=== PATIENT | female | born 1945 | race Two or more races ===

== ENCOUNTER 2021-02-26 16:12 | Inpatient (IN) | payer OTHER ==
[~2021-02-26] VITALS: Ht 157.5 cm; Wt 83.0 kg
[2021-02-26] MEDS ORDERED: LEVO88TA5 PO (16:36)
[2021-02-26] MEDS ORDERED: NYST15CR2 TP (16:36)
[2021-02-26] MEDS ORDERED: METF-440 PO (16:36)
[2021-02-26] MEDS ORDERED: SENN-261 PO (16:41)
[2021-02-26] MEDS ORDERED: OCULAR LUBRICANT EACHEYE (16:41)
[2021-02-26] MEDS ORDERED: ACET-2154 PO (16:41)
[2021-02-26] MEDS ORDERED: LISI20TA30 PO (16:41)
[2021-02-26] MEDS ORDERED: QUET25TA PO ×2 (16:41)
[2021-02-26 17:00] LABS: HEMATOCRIT 43.5 % (31.2-41.9); MEAN CORPUSCULAR HEMOGLOBIN 25.8 uug (24.7-32.8); MEAN CORPUSCULAR VOLUME 80.1 fL (75.5-95.3); PLATELET COUNT (AUTO) 242 K/uL (179-408)
--- NOTE | 2021-02-26 17:00 | NUR ---
pt awake PRENIALE AREA excorited and redness COLOSLY OBSERVE PT
[2021-02-26 17:04] LABS: CARBON DIOXIDE 27 mmol/L (21-32); CHLORIDE 104 mmol/L (98-107); CREATININE 0.9 mg/dL (0.6-1.3); GLUCOSE 160 mg/dL (74-106); UREA NITROGEN, BLOOD 15 mg/dL (7-18)
[2021-02-26 17:10] LABS: ALANINE AMINOTRANSFERASE 14 U/L (14-59); ALKALINE PHOSPHATASE 66 U/L (50-136); ASPARTATE AMINOTRANSFERASE 18 U/L (15-37); BILIRUBIN,TOTAL 0.3 mg/dL (0.2-1.0); TOTAL PROTEIN, SERUM 7.4 g/dL (6.4-8.2)
[2021-02-26 17:12] LABS: ACETAMINOPHEN < 2.0 ug/mL (10-30)
[2021-02-26 17:18] LABS: THYROID STIMULATING HORMONE 3.223 mIU/mL (0.358-3.740)
--- NOTE | 2021-02-26 17:44 | NUR ---
called [facility] waterman for psych eval
--- NOTE | 2021-02-26 18:15 | NUR ---
I&O CATHETER DONE cleare yellow color moderet amt no discomfort noted
[2021-02-26 18:34] LABS: *COLOR,URINE YELLOW (YELLOW); *KETONES,URINE 2+ (NEGATIVE); *UROBILINOGEN,URINE 0.2 E.U./dl (NORMAL); LEUKOCYTE ESTERASE ,URINE NEGATIVE (NEGATIVE); NITRITE, URINE NEGATIVE (NEGATIVE); UGLUCOSE NEGATIVE (NEGATIVE)
--- NOTE | 2021-02-26 18:43 | NUR ---
ROSALIND for lab result and medicle clearess
[2021-02-26 18:49] LABS: *BILIRUBIN,URIN 1+ (NEGATIVE); *BLOOD, URINE TRACE (NEGATIVE)
[2021-02-26 18:51] LABS: *AMPHETAMINE, URINE NEGATIVE (NEGATIVE); *CANNABINOID, URINE NEGATIVE (NEGATIVE); *COCCAINE, URINE NEGATIVE (NEGATIVE); *OPIATE, URINE NEGATIVE (NEGATIVE); *PHENCYCLIDINE SCREEN,URINE NEGATIVE (NEGATIVE)
[2021-02-26 18:54] LABS: *CLARITY,URINE SLIGHTLY CLOUDY (CLEAR); BACTERIA,URINE FEW /HPF (NONE SEEN); RBC,URINE 0-3 /HPF (0-3); SQUAMOUS EPITHELIAL CELL,UR MODERATE /HPF (NONE SEEN)
[2021-02-26 18:55] LABS: URINE AMORPHOUS URATE MANY /HPF
--- NOTE | 2021-02-26 19:05 | NUR ---
HAND OFF TO MARY RN
--- NOTE | 2021-02-26 19:10 | NUR ---
RECEIVED REPORT FROM [facility], REGISTRY. PT NOTED TO BE IN BED, RESTING COMFORTABLY.
--- NOTE | 2021-02-26 20:58 | NUR ---
ASSISTED PT TO RESTROOM, STEADY GAIT, DENIES ANY PAIN/DISCOMFORT.
--- NOTE | 2021-02-26 20:58 | NUR ---
GAVE REPORT TO GENESIS ROSEN.
--- NOTE | 2021-02-26 21:39 | NUR ---
Pt. admitted to [facility] , under care of Dr. ROMO AND DR. CARRERO Dx: psychosis, 5150 hold GD. Belongs List completed
[2021-02-26] MEDS ORDERED: BLOOD SUGAR DIAGNOSTIC 1 EACH STRIP VI ONE (21:45)
--- NOTE | 2021-02-26 21:55 | NUR ---
Admitted patient from the ER. Patient arrived via gurney. Patient on a 5150 hold for GD. Per hold: During face to face assessment patient confused, disorganized and disoriented alert oriented x 1. Patient has poor insight and impaired judgement per patient he no longer feels he can safely take care of her. Patient has no viable plan for self care. Patient is under the care of Dr. Green and Dr. Dickson. Vital signs were within normal limits. Patient was escorted to her room. Patient was confused and drowsy. Patient was unable to answer most of the questions nor sign. No sign or symptom of respiratory distress, breathing even, unlabored. No indication of pain or discomfort. Skin assessment was done. Redness under the patients stomach and redness between her thighs. No odor, bleeding or pus found. Valuables and belongings were checked and were put in proper storage. Will continue to monitor patient for safety.
[2021-02-26] MEDS ORDERED: ACETAMINOPHEN 325 MG TABLET PO PRN (22:00)
[2021-02-26] MEDS ORDERED: ZOLPIDEM 5 MG TABLET PO PRN (22:00)
[2021-02-26] MEDS ORDERED: LORAZEPAM 0.5 MG TABLET PO PRN (22:00)
[2021-02-26 22:10] VITALS: BP 144/67
[2021-02-27] MEDS ORDERED: LEVOTHYROXINE SODIUM 88 MCG TABLET PO SCH (06:00)
[2021-02-27] MEDS ORDERED: ACETAMINOPHEN 325 MG TABLET-SA PATIENTS-PAIN ONLY PO PRN (06:15)
[2021-02-27 07:30] VITALS: BP 160/75
[2021-02-27] MEDS: METFORMIN HCL 500 MG TABLET PO SCH ×2 (08:28→17:33)
[2021-02-27] MEDS: SENNOSIDES 1 TABLET PO SCH (08:28)
[2021-02-27] MEDS: LISINOPRIL 20 MG TABLET PO SCH (08:28)
[2021-02-27 08:38] LABS: CREATININE 0.9 mg/dL (0.6-1.3)
[2021-02-27] MEDS ORDERED: QUETIAPINE FUMARATE 25 MG TABLET PO PRN (11:45)
[2021-02-27] MEDS: SULFAMETH/TRIMETH 800/160 MG TABLET PO SCH ×2 (12:20→20:10)
[2021-02-27] MEDS: DIVALPROEX SPRINKLE 125 MG CAP.SPRINK PO SCH ×2 (12:20→17:33)
[2021-02-27] MEDS: NYSTATIN/TRIAMCINOLONE CREAM 15 GM TUBE TP SCH ×3 (12:21→18:09)
--- NOTE | 2021-02-27 14:23 | NUR ---
TAMMIE Initial Discharge Plan: Pt was residing at home [address] [place] [address] with her Jerry You ([phone]). Patient may need placement upon discharge. TAMMIE left a voicemail for patient's to collect collateral information. TAMMIE will continue to work with patient, family, and MD to ensure a safe and proper discharge plan.
--- NOTE | 2021-02-27 14:26 | NUR ---
Firearms Report: Civil Engineer'S Aide completed and submitted a [employer] firearms report for 5150 grave disability certifications. A copy of report has been placed in patient chart.
--- NOTE | 2021-02-27 14:32 | NUR ---
TAMMIE Family Contact: TAMMIE spoke with patient's Jerry You ([phone]) and discussed treatment and discharge plan. Jerry stated he cannot take care of the patient in her current condition at home and would like placement for her. TAMMIE stated due to the patient's insurance we cannot coordinate a SNF however we can coordinate a [facility] facility. Jerry is agreeable and willing to pay for this option.
[2021-02-27 15:04] VITALS: BP 112/63
[2021-02-27] MEDS ORDERED: QUETIAPINE FUMARATE 25 MG TABLET PO SCH ×2 (17:00)
[2021-02-27 20:02] VITALS: BP 134/67
[2021-02-27] MEDS: QUETIAPINE FUMARATE 25 MG TABLET PO SCH (20:10)
--- NOTE | 2021-02-28 02:41 | NUR ---
Received patient in a Laurel chair at the start of the shift. Awake and oriented to name only. The patient is confused and very forgetful despite frequent reorientation to the situation. Patient is medication compliant and needs encouragement when taking food and fluids. Assistance provided to the bathroom and patient was helped into bed. Safety stratiges are in place, bed alarm is on , frequent rounds are being done to ensure a safe environment. No behavioral issues noted at this time.
[2021-02-28] MEDS: LEVOTHYROXINE SODIUM 88 MCG TABLET PO SCH (05:26)
[2021-02-28 07:30] VITALS: BP 127/60
[2021-02-28] MEDS: LISINOPRIL 20 MG TABLET PO SCH (08:25)
[2021-02-28] MEDS: SULFAMETH/TRIMETH 800/160 MG TABLET PO SCH ×2 (08:25→20:10)
[2021-02-28] MEDS: METFORMIN HCL 500 MG TABLET PO SCH ×2 (08:25→17:22)
[2021-02-28] MEDS: DIVALPROEX SPRINKLE 125 MG CAP.SPRINK PO SCH ×3 (08:25→17:22)
[2021-02-28] MEDS: SENNOSIDES 1 TABLET PO SCH (08:25)
[2021-02-28] MEDS: NYSTATIN/TRIAMCINOLONE CREAM 15 GM TUBE TP SCH ×3 (08:26→17:22)
--- NOTE | 2021-02-28 11:38 | NUR ---
GPS: RECEIVED PT ON BED. HAD A BREAKFAST AND AFTER PT THERAPY, PT TRANSFERRED TO JITENDRA-CHAIR FOR UNSTEADINESS. PT COOPERATIVE WITH CARE. QUIET, DEPRESSED AND DISORIENTED TO TIME AND PLACE. RE-ORIENTED PT. COMPLIANT WITH MEDICATIONS.
--- NOTE | 2021-02-28 14:32 | NUR ---
UR NOTE: AUTHORIZATION#[id number] TAMMIE spoke with DALLAS Lopez ([phone]) (F:[phone]) who stated patient is authorized until Friday03/02/21 with review due on that day.
[2021-02-28 16:00] VITALS: BP 143/59
[2021-02-28 19:50] VITALS: BP_SYST 137; BP_SYST 160; BP_DIAS 52; BP_DIAS 65
[2021-02-28] MEDS: QUETIAPINE FUMARATE 25 MG TABLET PO SCH (20:10)
--- NOTE | 2021-02-28 23:30 | NUR ---
Patient B/P was elevated earlier. It was rechecks and it reads 131/61mmHg and pulse is 79bpm. will continue to monitor.
[2021-03-01] MEDS: LEVOTHYROXINE SODIUM 88 MCG TABLET PO SCH (06:12)
--- NOTE | 2021-03-01 06:55 | NUR ---
PATIENT SLEPT FOR APPROX 7.15 HOURS THROUGH THE NIGHT. SHE WAS NOTED CALM AND COOPERATIVE DURING THE SHIFT. WILL CONTINUE TO MONITOR.
[2021-03-01 07:30] VITALS: BP 121/76
[2021-03-01] MEDS: LISINOPRIL 20 MG TABLET PO SCH (08:16)
[2021-03-01] MEDS: METFORMIN HCL 500 MG TABLET PO SCH ×2 (08:16→17:17)
[2021-03-01] MEDS: SULFAMETH/TRIMETH 800/160 MG TABLET PO SCH ×2 (08:16→20:08)
[2021-03-01] MEDS: SENNOSIDES 1 TABLET PO SCH (08:16)
[2021-03-01] MEDS: NYSTATIN/TRIAMCINOLONE CREAM 15 GM TUBE TP SCH ×3 (08:55→17:17)
[2021-03-01] MEDS: DIVALPROEX SPRINKLE 125 MG CAP.SPRINK PO SCH ×3 (09:54→20:07)
--- NOTE | 2021-03-01 11:39 | NUR ---
GPS: PT 1126 14 DAY HOLD FAXED TO [facility] HEARING FOR GRAVELY DISABLED. PT WAS GIVEN A COPY AND MADE AWARE.
[2021-03-01 16:00] VITALS: BP 103/76
--- NOTE | 2021-03-01 18:37 | NUR ---
GPS: PT ALERT AND ORIENTED X2. PT NO NOTED AGGRESSIVE BEHAVIOR. PT COOPERATIVE WITH CARE AND COMPLIANT WITH MEDICATIONS. PT REFUSES DINNER, PT STATED SHE DOESN'T HAVE APPETITE.
[2021-03-01 20:02] VITALS: BP 111/74
[2021-03-01] MEDS: QUETIAPINE FUMARATE 25 MG TABLET PO SCH (20:07)
--- NOTE | 2021-03-02 02:13 | NUR ---
Received patient at the start of the shift awake and alert but very disoriented and paranoid. Patient does not remember being in the hospital despite multiple attempts at reorientation. This inspector automatic typewriter was able to encourage the patient to eat a snack and drink fluids. Patient was anxious. According to the day shift, this patient refused to eat lunch and dinner and spent the whole day in her room. This inspector automatic typewriter encouraged patient to have a shower because she has not showered since her admission ,4 days ago. The patient became argumentative on the subject. Continuing to monitor for safety, encourage compliance and provide assistance as allowed.
[2021-03-02] MEDS: LEVOTHYROXINE SODIUM 88 MCG TABLET PO SCH (05:50)
[2021-03-02 07:30] VITALS: BP 170/62
[2021-03-02] MEDS: SULFAMETH/TRIMETH 800/160 MG TABLET PO SCH ×2 (08:05→20:28)
[2021-03-02] MEDS: DIVALPROEX SPRINKLE 125 MG CAP.SPRINK PO SCH ×3 (08:05→20:28)
[2021-03-02] MEDS: METFORMIN HCL 500 MG TABLET PO SCH ×2 (08:05→16:07)
[2021-03-02] MEDS: SENNOSIDES 1 TABLET PO SCH (08:05)
[2021-03-02] MEDS: LISINOPRIL 20 MG TABLET PO SCH (08:06)
[2021-03-02] MEDS: NYSTATIN/TRIAMCINOLONE CREAM 15 GM TUBE TP SCH ×3 (08:13→16:07)
--- NOTE | 2021-03-02 10:48 | NUR ---
UR NOTE: AUTHORIZATION#[id number] faxed DALLAS Lopez ([phone]) (F:[phone]) patient's history and physical, updated progress notes, consultation notes, and medication and labs.
[2021-03-02] MEDS: GLUCERNA SHAKE 237 ML CAN PO SCH (16:07)
[2021-03-02 16:33] VITALS: BP 125/60
[2021-03-02] MEDS: QUETIAPINE FUMARATE 25 MG TABLET PO SCH (20:28)
[2021-03-03] MEDS: LEVOTHYROXINE SODIUM 88 MCG TABLET PO SCH (06:15)
[2021-03-03] MEDS: METFORMIN HCL 500 MG TABLET PO SCH ×2 (08:11→16:44)
[2021-03-03] MEDS: SENNOSIDES 1 TABLET PO SCH (08:11)
[2021-03-03] MEDS: DIVALPROEX SPRINKLE 125 MG CAP.SPRINK PO SCH ×3 (08:11→20:51)
[2021-03-03] MEDS: LISINOPRIL 20 MG TABLET PO SCH (08:12)
[2021-03-03] MEDS: GLUCERNA SHAKE 237 ML CAN PO SCH ×2 (08:12→16:43)
[2021-03-03] MEDS: SULFAMETH/TRIMETH 800/160 MG TABLET PO SCH ×2 (08:12→20:51)
[2021-03-03] MEDS: NYSTATIN/TRIAMCINOLONE CREAM 15 GM TUBE TP SCH ×3 (08:13→16:44)
[2021-03-03 08:23] VITALS: BP 148/67
[2021-03-03 08:46] LABS: BILIRUBIN,TOTAL 0.4 mg/dL (0.2-1.0); POTASSIUM 4.3 mmol/L (3.5-5.1); TOTAL PROTEIN, SERUM 8.5 g/dL (6.4-8.2)
[2021-03-03 08:48] LABS: HEMATOCRIT 49.8 % (31.2-41.9)
[2021-03-03 08:50] LABS: MEAN CORPUSCULAR HEMOGLOBIN 25.8 uug (24.7-32.8); PLATELET COUNT (AUTO) 288 K/uL (179-408)
[2021-03-03 13:18] LABS: BAND % (MANUAL) 2 % (0-10); EOSINOPHILS % (MANUAL) 4 % (0-8); LYMPHOCYTES % (MANUAL) 20 % (20-40); MONOCYTES % (MANUAL) 4 % (2-10); NEUTROPHILS % (MANUAL) 70 % (42-75)
[2021-03-03 16:42] VITALS: BP 138/81
[2021-03-03 20:00] VITALS: BP 124/54
[2021-03-03] MEDS: QUETIAPINE FUMARATE 25 MG TABLET PO SCH (20:51)
[2021-03-03] MEDS: MEMANTINE HCL 5 MG TABLET PO SCH (20:51)
[2021-03-04] MEDS: LEVOTHYROXINE SODIUM 88 MCG TABLET PO SCH (06:05)
[2021-03-04 07:30] VITALS: BP 128/55
[2021-03-04] MEDS: METFORMIN HCL 500 MG TABLET PO SCH ×2 (08:09→16:13)
[2021-03-04] MEDS: SULFAMETH/TRIMETH 800/160 MG TABLET PO SCH ×2 (08:09→20:11)
[2021-03-04] MEDS: DIVALPROEX SPRINKLE 125 MG CAP.SPRINK PO SCH ×3 (08:09→20:10)
[2021-03-04] MEDS: SENNOSIDES 1 TABLET PO SCH (08:09)
[2021-03-04] MEDS: GLUCERNA SHAKE 237 ML CAN PO SCH ×2 (08:10→16:13)
[2021-03-04] MEDS: LISINOPRIL 20 MG TABLET PO SCH (08:10)
[2021-03-04] MEDS: NYSTATIN/TRIAMCINOLONE CREAM 15 GM TUBE TP SCH ×3 (08:11→16:13)
[2021-03-04 15:55] VITALS: BP 126/58
[2021-03-04 20:07] VITALS: BP 118/56
[2021-03-04] MEDS: QUETIAPINE FUMARATE 25 MG TABLET PO SCH (20:10)
[2021-03-04] MEDS: MEMANTINE HCL 5 MG TABLET PO SCH (20:11)
[2021-03-05] MEDS: LEVOTHYROXINE SODIUM 88 MCG TABLET PO SCH (06:16)
[2021-03-05 08:15] VITALS: BP 122/58
[2021-03-05] MEDS: SENNOSIDES 1 TABLET PO SCH (08:43)
[2021-03-05] MEDS: LISINOPRIL 20 MG TABLET PO SCH (08:44)
[2021-03-05] MEDS: DIVALPROEX SPRINKLE 125 MG CAP.SPRINK PO SCH ×3 (08:44→20:04)
[2021-03-05] MEDS: NYSTATIN/TRIAMCINOLONE CREAM 15 GM TUBE TP SCH ×3 (08:44→16:41)
[2021-03-05] MEDS: SULFAMETH/TRIMETH 800/160 MG TABLET PO SCH ×2 (08:44→20:04)
[2021-03-05] MEDS: METFORMIN HCL 500 MG TABLET PO SCH ×2 (08:44→16:41)
[2021-03-05] MEDS: GLUCERNA SHAKE 237 ML CAN PO SCH ×2 (08:46→17:44)
--- NOTE | 2021-03-05 11:00 | NUR ---
COURT HEARING: Patient's probable cause hearing for the 5250 hold was today. 5250 hold upheld for GD.
--- NOTE | 2021-03-05 11:57 | NUR ---
UR NOTE: TAMMIE spoke with Madison ([phone]) to gather information regarding patient's next review. Madison requested updated notes from 03/02/2021 to be able to determine next review date. TAMMIE faxed Ginette Lopez ([phone]) (F:[phone]) patient's updated progress notes.
[2021-03-05 16:18] VITALS: BP 136/71
--- NOTE | 2021-03-05 18:29 | NUR ---
Patient is alert and oriented to name and place, but she is confusion, disoriented, and requires reality orientation during conversation. Patient noted with thought blocking pattern and provides minimal information during conversation. Patient appears internally preoccupied and is suspicious and paranoid of staff. Patient denies suicidal and homicidal ideation, denies hallucinations. Patient is able to ambulate independently and perform self care and ADL's independently. Patient is isolative to her room, she is encouraged to participate in the unit groups and therapeutic milieu but she refuses and stays in her room. Patient provided with education about impulse control and encouraged to communicate needs to staff.
[2021-03-05 19:56] VITALS: BP 124/68
[2021-03-05] MEDS: MEMANTINE HCL 5 MG TABLET PO SCH (20:04)
[2021-03-05] MEDS: QUETIAPINE FUMARATE 25 MG TABLET PO SCH (20:04)
[2021-03-06] MEDS: LEVOTHYROXINE SODIUM 88 MCG TABLET PO SCH (06:37)
[2021-03-06 07:30] VITALS: BP 129/63
[2021-03-06] MEDS: SULFAMETH/TRIMETH 800/160 MG TABLET PO SCH (08:54)
[2021-03-06] MEDS: SENNOSIDES 1 TABLET PO SCH (08:54)
[2021-03-06] MEDS: DIVALPROEX SPRINKLE 125 MG CAP.SPRINK PO SCH ×3 (08:59→20:30)
[2021-03-06] MEDS: GLUCERNA SHAKE 237 ML CAN PO SCH ×2 (08:59→17:20)
[2021-03-06] MEDS: NYSTATIN/TRIAMCINOLONE CREAM 15 GM TUBE TP SCH ×3 (08:59→17:20)
[2021-03-06] MEDS: METFORMIN HCL 500 MG TABLET PO SCH ×2 (08:59→17:19)
[2021-03-06] MEDS: LISINOPRIL 20 MG TABLET PO SCH (08:59)
--- NOTE | 2021-03-06 09:24 | NUR ---
UR NOTE: TAMMIE spoke with Madison ([phone]) who stated patient's clinicals are due tomorrow 03/07/21.
--- NOTE | 2021-03-06 11:07 | NUR ---
GPS: PT RECEIEVED IN HER BED, ASLEEP. PT WOKE UP, ASSISTED WITH TRANSFER FROM BED TO JITENDRA-CHAIR FOR BREAKFAST. COOPERATIVE WITH CARE AND COMPLIANT WITH MEDICATIONS. PT STILL CONFUSED AND DISORIENTED. PT ENCOURAGE TO ATTEND GROUP THERAPY BUT REFUSED.
[2021-03-06 16:13] VITALS: BP 129/60
--- NOTE | 2021-03-06 17:35 | NUR ---
GPS: PT ON GERICHAIR SITTING WITHOUT THE TABLE INSIDE HER ROOM. LIKES STAYING THERE WITH ROOMMATE. PT ALERT AND ORIENTED X1. PT COMPLIANT WITH MEDICATIONS AND COOPERATIVE WITH CARE.
[2021-03-06] MEDS: MEMANTINE HCL 10 MG TABLET PO SCH (20:30)
[2021-03-06] MEDS: QUETIAPINE FUMARATE 25 MG TABLET PO SCH (20:30)
[2021-03-06] MEDS ORDERED: MEMANTINE HCL 5 MG TABLET PO SCH (21:00)
[2021-03-06 22:59] VITALS: BP 128/55
--- NOTE | 2021-03-07 02:20 | NUR ---
Patient is confused, disoriented and unable to engage in any meaningful conversation. The patient has poor impulse control and gets up out of her bed multiple times during the shift so far. The patient needs redirection and reorientation on a regular basis. VS are stable and assistance is provided when patient is out of bed d/t a unsteady gait. Safety stratiges are in place. Patient has little sleep hours tonight.
[2021-03-07] MEDS: LEVOTHYROXINE SODIUM 88 MCG TABLET PO SCH (06:03)
[2021-03-07 07:30] VITALS: BP 145/68
[2021-03-07] MEDS: SENNOSIDES 1 TABLET PO SCH (08:11)
[2021-03-07] MEDS: LISINOPRIL 20 MG TABLET PO SCH (08:11)
[2021-03-07] MEDS: DIVALPROEX SPRINKLE 125 MG CAP.SPRINK PO SCH ×3 (08:16→20:25)
[2021-03-07] MEDS: METFORMIN HCL 500 MG TABLET PO SCH ×2 (08:17→16:39)
[2021-03-07] MEDS: NYSTATIN/TRIAMCINOLONE CREAM 15 GM TUBE TP SCH ×3 (08:17→16:40)
[2021-03-07] MEDS: GLUCERNA SHAKE 237 ML CAN PO SCH ×2 (08:25→16:39)
--- NOTE | 2021-03-07 10:50 | NUR ---
UR NOTE: AUTHORIZATION#[id number] SW faxed DALLAS Lopez ([phone]) (F:[phone]) patient's updated progress notes, medication and labs.
[2021-03-07 16:00] VITALS: BP 131/67
--- NOTE | 2021-03-07 17:03 | NUR ---
GPS: Remain calm and cooperative.assisted with adl's. continue plan of care.
[2021-03-07 20:05] VITALS: BP 125/67
[2021-03-07] MEDS: QUETIAPINE FUMARATE 25 MG TABLET PO SCH (20:25)
[2021-03-07] MEDS: MEMANTINE HCL 10 MG TABLET PO SCH (20:25)
[2021-03-08] MEDS: LEVOTHYROXINE SODIUM 88 MCG TABLET PO SCH (06:23)
[2021-03-08 07:30] VITALS: BP 128/62
[2021-03-08 08:02] LABS: BILIRUBIN,TOTAL 0.3 mg/dL (0.2-1.0); CREATININE 1.1 mg/dL (0.6-1.3); POTASSIUM 4.4 mmol/L (3.5-5.1); TOTAL PROTEIN, SERUM 7.1 g/dL (6.4-8.2)
[2021-03-08] MEDS: SENNOSIDES 1 TABLET PO SCH (09:07)
[2021-03-08] MEDS: DIVALPROEX SPRINKLE 125 MG CAP.SPRINK PO SCH ×2 (09:08→21:07)
[2021-03-08] MEDS: LISINOPRIL 20 MG TABLET PO SCH (09:08)
[2021-03-08] MEDS: METFORMIN HCL 500 MG TABLET PO SCH ×2 (09:09→17:20)
[2021-03-08] MEDS: GLUCERNA SHAKE 237 ML CAN PO SCH ×2 (09:10→17:19)
[2021-03-08] MEDS: NYSTATIN/TRIAMCINOLONE CREAM 15 GM TUBE TP SCH ×3 (09:10→17:19)
--- NOTE | 2021-03-08 13:56 | NUR ---
UR NOTE: AUTHORIZATION#[id number] SW faxed DALLAS Lopez ([phone]) (F:[phone]) patient's updated progress notes, medication and labs.
--- NOTE | 2021-03-08 14:04 | NUR ---
MACEY Christiansen Spoke with Madison Linder ) and she confirmed that patient is authorized until FridayMarch 12. Authorization number: [id number] (Fax is : [phone]). Daily clinicals need to be faxed.
--- NOTE | 2021-03-08 14:56 | NUR ---
Gps/Physician Relations Manager- Had been flat , encouraged to feed self, poor intake, asisted with her meals. Compliant with her routine am meds. needed prompting to initiate simple tasks
[2021-03-08 16:00] VITALS: BP 117/74
--- NOTE | 2021-03-08 16:54 | NUR ---
Gps/Factory Lay Out Engineer- Offered water , encouraged , assisted .HOB elevated.
[2021-03-08 20:13] VITALS: BP 126/66
[2021-03-08] MEDS ORDERED: DIVALPROEX SPRINKLE 125 MG CAP.SPRINK PO SCH (21:00)
[2021-03-08] MEDS: MEMANTINE HCL 10 MG TABLET PO SCH (21:07)
[2021-03-08] MEDS: QUETIAPINE FUMARATE 25 MG TABLET PO SCH (21:08)
--- NOTE | 2021-03-09 04:04 | NUR ---
Received to care, lying bed, confused, but pleasant upon approach, and able to respond verbally. Compliant with medications. Assisted with PO fluids and snack. As of now, continues to sleep well. No distress noted. Will continue to monitor closely.
[2021-03-09] MEDS: LEVOTHYROXINE SODIUM 88 MCG TABLET PO SCH (06:18)
[2021-03-09 07:30] VITALS: BP 115/53
[2021-03-09 07:45] LABS: HEMATOCRIT 39.4 % (31.2-41.9); MEAN CORPUSCULAR HEMOGLOBIN 25.7 uug (24.7-32.8); MEAN CORPUSCULAR VOLUME 79.2 fL (75.5-95.3); PLATELET COUNT (AUTO) 253 K/uL (179-408)
[2021-03-09] MEDS: DIVALPROEX SPRINKLE 125 MG CAP.SPRINK PO SCH ×2 (08:13→21:24)
[2021-03-09] MEDS: LISINOPRIL 20 MG TABLET PO SCH (08:14)
[2021-03-09] MEDS: METFORMIN HCL 500 MG TABLET PO SCH ×2 (08:14→17:04)
[2021-03-09] MEDS: SENNOSIDES 1 TABLET PO SCH (08:14)
[2021-03-09] MEDS: NYSTATIN/TRIAMCINOLONE CREAM 15 GM TUBE TP SCH ×3 (08:15→16:08)
[2021-03-09] MEDS: GLUCERNA SHAKE 237 ML CAN PO SCH ×2 (08:26→16:55)
--- NOTE | 2021-03-09 11:22 | NUR ---
UR NOTE: AUTHORIZATION#[id number] SW faxed DALLAS Lopze ([phone]) (F:[phone]) patient's updated progress notes, medication and labs.
--- NOTE | 2021-03-09 14:34 | NUR ---
Gps/Pail Bailer- Ambulated to the bathroom with front wheel walker, slow initiating her simple tasks, needed verbal cueing sequencing her tasks. Noted patient stopping during ambulation, when asked why she does it, claimed does not know. Assisted with her meals, poor initiation. Fluids offered.
[2021-03-09 16:46] LABS: *BILIRUBIN,URIN NEGATIVE (NEGATIVE); *BLOOD, URINE NEGATIVE (NEGATIVE); *CLARITY,URINE CLEAR (CLEAR); *COLOR,URINE YELLOW (YELLOW); *KETONES,URINE 2+ (NEGATIVE); *UROBILINOGEN,URINE 0.2 E.U./dl (NORMAL); LEUKOCYTE ESTERASE ,URINE NEGATIVE (NEGATIVE); NITRITE, URINE NEGATIVE (NEGATIVE); PH,URINE 5.5 (5.0-8.0); UGLUCOSE NEGATIVE (NEGATIVE)
[2021-03-09 16:56] VITALS: BP 142/72
[2021-03-09 19:59] VITALS: BP 124/62
[2021-03-09] MEDS: QUETIAPINE FUMARATE 25 MG TABLET PO SCH (21:24)
[2021-03-09] MEDS: MEMANTINE HCL 10 MG TABLET PO SCH (21:24)
--- NOTE | 2021-03-10 04:36 | NUR ---
Received to care, lying bed, confused, but pleasant upon approach, and able to respond verbally. Compliant with medications. Assisted with PO fluids and snack, and taken to to the bathroom, via front wheel walker. As of now, she continues to sleep well. No distress noted. Will continue to monitor closely.
[2021-03-10] MEDS: LEVOTHYROXINE SODIUM 88 MCG TABLET PO SCH (06:51)
[2021-03-10 07:30] VITALS: BP 103/48
[2021-03-10] MEDS: DIVALPROEX SPRINKLE 125 MG CAP.SPRINK PO SCH ×2 (08:42→20:29)
[2021-03-10] MEDS: METFORMIN HCL 500 MG TABLET PO SCH ×2 (08:42→16:50)
[2021-03-10] MEDS: GLUCERNA SHAKE 237 ML CAN PO SCH ×2 (08:43→16:50)
[2021-03-10] MEDS: LISINOPRIL 20 MG TABLET PO SCH (08:43)
[2021-03-10] MEDS: SENNOSIDES 1 TABLET PO SCH (08:44)
[2021-03-10] MEDS: NYSTATIN/TRIAMCINOLONE CREAM 15 GM TUBE TP SCH ×3 (08:44→16:49)
[2021-03-10 16:00] VITALS: BP 119/70
[2021-03-10 20:00] VITALS: BP 137/73
[2021-03-10] MEDS: QUETIAPINE FUMARATE 25 MG TABLET PO SCH (20:29)
[2021-03-10] MEDS: MEMANTINE HCL 10 MG TABLET PO SCH (20:29)
--- NOTE | 2021-03-10 22:00 | NUR ---
Received patient sitting in a bhavesh chair in the hallway near the nursing station. she is noted awake A/O x 1 in no distress. she is calm and pleasant upon approached. V/S stable. She was given PO fluids and snacks. she was also taken to the toilet where she voided. she continue compliant with medication regiment. She is reassured for her safety. safety and fall precaution are in place. will continue to monitor
[2021-03-11] MEDS: LEVOTHYROXINE SODIUM 88 MCG TABLET PO SCH (06:36)
[2021-03-11 07:44] VITALS: BP 142/65
[2021-03-11] MEDS: DIVALPROEX SPRINKLE 125 MG CAP.SPRINK PO SCH ×2 (08:32→20:34)
[2021-03-11] MEDS: METFORMIN HCL 500 MG TABLET PO SCH ×2 (08:32→16:41)
[2021-03-11] MEDS: SENNOSIDES 1 TABLET PO SCH (08:32)
[2021-03-11] MEDS: LISINOPRIL 20 MG TABLET PO SCH (08:32)
[2021-03-11] MEDS: GLUCERNA SHAKE 237 ML CAN PO SCH ×2 (08:33→16:40)
[2021-03-11] MEDS: NYSTATIN/TRIAMCINOLONE CREAM 15 GM TUBE TP SCH ×3 (08:38→16:41)
[2021-03-11 15:53] VITALS: BP 114/55
--- NOTE | 2021-03-11 20:30 | NUR ---
Received patient in her room in bed sleeping but easily arousable. She is noted A/O x 1 calm and pleasant upon approached. She is a poor historian. Patient was given PO fluids and snacks. V/S stable. She is reassured for her safety. safety and fall precaution are in place. Will continue to monitor.
[2021-03-11] MEDS: MEMANTINE HCL 10 MG TABLET PO SCH (20:34)
[2021-03-11] MEDS: QUETIAPINE FUMARATE 25 MG TABLET PO SCH (20:35)
[2021-03-11 21:54] VITALS: BP 123/75
[2021-03-12] MEDS: LEVOTHYROXINE SODIUM 88 MCG TABLET PO SCH (06:31)
[2021-03-12 07:37] VITALS: BP 109/57
--- NOTE | 2021-03-12 08:39 | NUR ---
Discharge Note Patient will be discharged to [facility] [id number] [place] [address] ([phone]) via [employer] [facility] between 10:00am and 10:30am. Patient is alert and oriented x3 and is aware and agreeable with discharge plan. Patient denies suicidal or homicidal ideation. Patient presents with appropriate mood and congruent affect. Patients is agreeable with discharge plan. Patient is referred to [facility] [address] [place] [address] ([phone]) and has an appointment on April 25 at 12pm per disease case manager. Patient is also referred to [facility] [address], [address] [place] [address] ([phone]).
[2021-03-12 09:00] VITALS: BP 109/57
[2021-03-12] MEDS: LISINOPRIL 20 MG TABLET PO SCH (09:00)
[2021-03-12] MEDS: GLUCERNA SHAKE 237 ML CAN PO SCH (09:02)
[2021-03-12] MEDS: SENNOSIDES 1 TABLET PO SCH (09:03)
[2021-03-12] MEDS: METFORMIN HCL 500 MG TABLET PO SCH (09:03)
[2021-03-12] MEDS: NYSTATIN/TRIAMCINOLONE CREAM 15 GM TUBE TP SCH (09:03)
[2021-03-12] MEDS: DIVALPROEX SPRINKLE 125 MG CAP.SPRINK PO SCH (09:03)
--- NOTE | 2021-03-12 09:21 | NUR ---
TAMMIE Tobacco Warehouse Manager Contact TAMMIE spoke with Madison ([phone]) stamper blocker to clarify upcomimg psych appt info. TAMMIE was informed pt is scheduled for an appointment with Dr. Joey Hood ([phone]) as a new patient. Address: [address] [place] [address].
--- NOTE | 2021-03-12 09:30 | NUR ---
SW Facility Contact TAMMIE faxed H&P and med list to Natali ([phone]), disaster recovery coordinator at [phone], per request.
--- NOTE | 2021-03-12 10:07 | NUR ---
UR Note: AUTHORIZATION#[id number] SW faxed DALLAS Lopez ([phone]) (F:[phone]) patient's updated progress notes, medication and labs.
--- NOTE | 2021-03-12 11:14 | NUR ---
DISCHARGE NOTE: Patient discharged to [facility] located at [address] [place] [address] ([phone]). Patient transported by [facility] [employer], escorted off the unit by nursing staff in a wheelchair. Patient's personal belongings, valuables, and home medications inventoried with patient and all returned on discharge. Patient admitted with vaughan totalling $585.00, counted by nursing staff and returned to patient. Patient provided with education about discharge instructions, follow up care, and discharge medications, she is able to verbalize understanding but is confused and requires redirection. Patient's skin is intact. Discharge photo taken of redness in lower abdominal folds. Patient's , Jerry You, notified of discharge. Patient denies suicidal and homicidal ideation. Patient's psychotropic medication called to [facility] , gave prescription and patient information to Mariela.
== END 2021-03-12 10:20 | DRG 885 ==
LOC: ER 16:17 → GPS 21:20
PROVIDERS: ADMIT Psychiatry & Neurology Psychosomatic Medicine; ATTEND Internal Medicine
DX: F29 Unspecified psychosis not due to a substance or known physiological condition (principal); N39.0 Urinary tract infection, site not specified; F03.91 Unspecified dementia, unspecified severity, with behavioral disturbance; E03.9 Hypothyroidism, unspecified; Z79.84 Long term (current) use of oral hypoglycemic drugs; F25.9 Schizoaffective disorder, unspecified; I10 Essential (primary) hypertension; Z79.899 Other long term (current) drug therapy; Z79.890 Hormone replacement therapy; Z91.83 Wandering in diseases classified elsewhere; E11.9 Type 2 diabetes mellitus without complications
CPT/HCPCS: 36415; 70030-TC; 80164; 84443; 85025; 87086; 93005; 97161; A4663